=== PATIENT | female | born 1965 | race Caucasian/White ===

== ENCOUNTER 2019-10-18 14:08 | Emergency (ER) | payer OTHER ==
[~2019-10-18] VITALS: Ht 170.2 cm; Wt 82.6 kg
[2019-10-18 14:13] VITALS: Ht 170.2 cm; Wt 82.6 kg
[2019-10-18 16:29] LABS: microscopic required? NO
[2019-10-18 16:35] LABS: UA SPECIFIC GRAVITY >=1.030 (1.005-1.035); urine erythrocyte NEGATIVE (NEGATIVE)
[2019-10-18 16:40] LABS: BASOPHIL % 0.2 % (0-2); PLATELET COUNT 185 x10^3mcL (130-400); RED CELL DISTRIBUTION WIDTH 13.8 % (11.5-14.5)
[2019-10-18 16:54] LABS: CALCIUM 8.8 mg/dL (8.5-10.1); CARBON DIOXIDE 30.8 mmol/L (21-32); CHLORIDE SERUM 104 mmol/L (98-107); CREATININE SERUM 0.7 mg/dL (0.6-1.0); GFR1 > 60 mL/min; GLUCOSE SERUM 175 mg/dL (74-106); POTASSIUM SERUM 3.9 mmol/L (3.5-5.1); SODIUM SERUM 139 mmol/L (136-145)
[2019-10-18 17:01] LABS: ALKALINE PHOSPHATASE 95 U/L (46-116); ALT/SGPT 20 U/L (14-59); AMYLASE 39 U/L (25-115); AST/SGOT 14 U/L (15-37); LIPASE 70 IU/L (73-393); TOTAL PROTEIN, SERUM 6.9 g/dL (6.4-8.2)
[2019-10-18 17:04] LABS: ALBUMIN 3.3 g/dL (3.4-5.0)
[2019-10-18 19:04] VITALS: BP 99/44
== END 2019-10-18 19:04 | disposition home or self-care (01) ==
LOC: ED 14:08
PROVIDERS: Emergency Medicine
DX: K57.32 Diverticulitis of large intestine without perforation or abscess without bleeding (principal); E11.9 Type 2 diabetes mellitus without complications
CPT/HCPCS: J2270; J2405; J7030; Q9967